=== PATIENT | female | born 1940 | race Caucasian/White ===

== ENCOUNTER → 2018-06-29 | Outpatient (REF) | payer MEDICARE, OTHER ==
[~2018-06-29] MED LIST: ASPIRIN LOW81 M1 PO; CALCIUM600 M2 PO; CIPROFLOXACN500 MG PO; FISH OIL1000 MG PO; GLUCOSAMINE1 TA1 OR; METAMUCIL58.6 % OR; MULTIVITAMI1 PO; ZOFRAN ODT4 MG PO
== END | disposition home or self-care (01) ==
LOC: MAMMO 06-28 10:30
PROVIDERS: ATTEND Preventive Medicine Occupational Medicine
DX: Z12.31 Encounter for screening mammogram for malignant neoplasm of breast (principal)

== ENCOUNTER 2019-09-01 15:35 | Observation (INO) | payer MEDICARE, OTHER ==
[~2019-09-01] VITALS: Ht 157.5 cm; Wt 50.0 kg
--- NOTE | 2019-09-01 15:43 | NUR ---
PT TO ROOM VIA WHEELCHAIR, FOR BEDSIDE TRIAGE
--- NOTE | 2019-09-01 15:45 | NUR ---
PT ASWAER OF CRITICAL PT IN ANOTHER ROOM AND THAT WE WILL BE WITH THEM YAZ
--- NOTE | 2019-09-01 16:18 | NUR ---
IV INITIATED AND LABS COLLECTED. PT MEDICATION ORDERED FOR 10/10 PAIN TO LOW BACK. PT ALSO REPORTS NAUSEA AND ABD PAIN.
[2019-09-01] MEDS ORDERED: ALEVE220 M2 PO (16:22)
[2019-09-01 16:40] LABS: HEMOGLOBIN 13.3 g/dl (12.0-16.0); IMMATURE GRANULOCYTES 0.3 % (0.0-5.0); MEAN CELL VOLUME 90.7 fL CALC (80.0-100.0); MEAN CORPUSCULAR HGB 30.2 pG CALC (26.0-32.0); MEAN CORPUSCULAR HGB CONC 33.3 g/dL CAL (32.0-36.0); NEUT# 5.2 thou/uL (2.00-7.15); RED BLOOD COUNT 4.41 mill/uL (4.20-5.60); RED CELL DISTRI WIDTH 13.4 % (11.5-15.5)
[2019-09-01 16:59] LABS: PROTHROMBIN TIME 10.3 SECONDS (9.0-12.5)
--- NOTE | 2019-09-01 17:00 | NUR ---
PT REPORTS CONTINUED 8/10 PAIN TO ABD AND BACK. MD NOTIFIED.
[2019-09-01 17:12] LABS: ALBUMIN 4.3 g/dL (3.2-5.0); ALKALINE PHOSPHATASE 58 u/l (38-126); AMYLASE 107 u/l (30-110); ANION GAP 10 (6-22 (CALC)); BILIRUBIN, TOTAL 0.8 mg/dL (0.0-1.4); BUN 19 mg/dL (8-23); BUN/CREATININE RATIO 35 (12-20 (CALC)); CARBON DIOXIDE 26 mmol/l (22-30); CHLORIDE 99 mmol/l (95-108); CREATININE 0.5 mg/dL (0.5-1.0); GFR > 60 ML/MIN (>=60 (CALC)); GFR FOR AFR.AMER. > 60 ML/MIN (>=60 (CALC)); LIPASE 85 u/l (23-300); SGOT/AST 30 u/l (9-36); SODIUM 131 mmol/l (137-146); TOTAL PROTEIN 6.9 g/dL (6.3-8.2)
--- NOTE | 2019-09-01 17:51 | NUR ---
PT MEDICATED WITH 2 MG OF MORPHINE FOR 8/10 PAIN TO LOW BACK AND GENERALIZED ABD PAIN.
[2019-09-01 18:17] LABS: URINE BILIRUBIN - DIPSTICK NEGATIVE (NEGATIVE); URINE BLOOD DIPSTICK TRACE-LYSED (NEGATIVE); URINE COLOR YELLOW; URINE GLUCOSE - DIPSTICK NEGATIVE (NEGATIVE); URINE KETONE TRACE mg/dL (NEGATIVE); URINE LEUK ESTERASE TRACE (NEGATIVE); URINE NITRITE - DIPSTICK NEGATIVE (Negative); URINE PROTEIN - DIPSTICK NEGATIVE (NEG-TRACE); URINE UROBILINOGEN - DIPSTICK 0.2 E.U./dL (0.2)
--- NOTE | 2019-09-01 18:26 | NUR ---
MD AT BEDSIDE TO DISCUSS RESULTS AND PLAN FOR ULTRASOUND.
--- NOTE | 2019-09-01 19:19 | NUR ---
REPORT TO BAKARI SORENSEN FOR TRANSPORT.
--- NOTE | 2019-09-01 19:25 | NUR ---
PATIENT PAIN NOW /10.
--- NOTE | 2019-09-01 19:30 | NUR ---
PT REPORT CALLED TO LACHO HAGEN.
[2019-09-01 21:00] VITALS: BP 134/78
--- NOTE | 2019-09-02 | NUR ---
PT RESTING IN BED, CONTINUES TO HAVE EMESIS, EMESIS BAGS GIVEN, DISCUSSED INFUSION OF IV ANTIBIOTICS, PT AGREES, CALL LIGHT IN REACH,CONTINUE TO MONITOR.
[2019-09-02 04:04] VITALS: BP 131/78
--- NOTE | 2019-09-02 05:40 | NUR ---
PT RESTING IN BED, PT STATES SHE FEELS MUCH BETTER, IV ANTIBIOTIC INFUSING, PT PROVIDED ICE CHIPS. CALL LIGHT IN REACH,CONTINUE TO MONITOR.
--- NOTE | 2019-09-02 07:10 | NUR ---
REPORT RECEIVED FROM LACHO HAGEN. PT RESTING IN BED SEMI FOWLERS; ALERT AND ORIENTED. DENIES PAIN. RESPIRATIONS EVEN AND UNLABORED ON ROOM AIR. RLQ ABDOMINAL TENDERNESS WITH PALPATION; ABDOMEN DISTENDED AND SOFT; GOOD BOWEL SOUNDS. PLAN OF CARE REVIEWED. PT ENCOURAGED TO VERBALIZE CONCERNS. STATES UNDERSTANDING. SAFETY MEASURES IN PLACE. CALL LIGHT WITHIN REACH.
[2019-09-02 07:34] VITALS: BP 106/66
--- NOTE | 2019-09-02 08:50 | NUR ---
DR. SMITH AT BEDSIDE.
--- NOTE | 2019-09-02 09:43 | NUR ---
MORPHINE AND ZOFRAN GIVEN WITH AM MEDS FOR 5/10 ABDOMINAL PAIN. SITTING UP IN BED DRINKING ENSURE; CAUSING MILD NAUSEA. IV SITE APPEARS HEALTHY AND FLUSHES.
[2019-09-02] MEDS ORDERED: ALENDRONATE SOD70 MG PO (09:55)
[2019-09-02 11:00] VITALS: BP 111/72
[2019-09-02 15:10] VITALS: BP 101/63
--- NOTE | 2019-09-02 15:59 | NUR ---
AFTER 2/3 DOSES OF ORAL CONTRAST PT C/O NAUSEA. ZOFRAN GIVEN AT THIS TIME.
--- NOTE | 2019-09-02 18:03 | NUR ---
PT TRANSPORTED TO CT VIA WHEELCHAIR IN STABLE CONDITION. BACK IN ROOM. PT TOLERATED WELL. TRANSFERRED WITH STAND BY ASSIST; PT EXPERIENCING JOINT STIFFNESS AND PAIN. REQUESTING WARM PACKS AND PAIN MEDICATION.
--- NOTE | 2019-09-02 18:38 | NUR ---
MORPHINE GIVEN AT THIS TIME; PT C/O 11/10 JOINT AND ABDOMEN PAIN AFTER TRANSPORT. UNASYN INFUSING AT THIS TIME. WARM PACKS PROVIDED.
[2019-09-02 19:21] VITALS: BP 113/68
--- NOTE | 2019-09-02 19:55 | NUR ---
PT RESTING IN BED, ALERT AND ORIETNED. RESPIRATIONS EVEN AND UNLABORED ON RA. LUNGS SOUND CLEAR/DIMINISHED. PEDAL PULSES WEAK. PT REPORTS HAVING PAIN OF 7/10 IN LOWER BACK, PT EDUCATED ON PAIN MED SCHEDULE. SAFETY PRECAUTIONS IN PLACE. WILL CONTINUE TO MONITOR.
[2019-09-02 23:53] VITALS: BP 93/55
--- NOTE | 2019-09-03 01:17 | NUR ---
PT RESTING IN BED. RESPIRATIONS EVEN AND UNLABORED ON RA. NO S/S OF DISTRESS AT THIS TIME. WILL CIONTINUE TO MONITOR.
--- NOTE | 2019-09-03 03:53 | NUR ---
PT RESTING IN BED. TELE IN PLACE. NO S/S OF DISTRESS AT THIS TIME. CALL OJEDA WITHIN REACH WILL CONTINUE TO MONITOR.
[2019-09-03 04:18] VITALS: BP 114/64
[2019-09-03 08:00] VITALS: BP 129/64
--- NOTE | 2019-09-03 08:00 | NUR ---
PT RESTING IN BED. DENIES PAIN OR NAUSEA AT THIS TIME. REQUESTING REGULAR FOOD.
[2019-09-03 11:35] VITALS: BP 131/64
--- NOTE | 2019-09-03 13:00 | NUR ---
PT TOLERATED SOFT DIET. DENIES PAIN OR NAUSEA. PROVIDER UPDATED/ PLAN FOR DISCHARGE TODAY. PATIENT AGREES.
--- NOTE | 2019-09-03 16:09 | NUR ---
PT DISCHARGED, IV CATH REMOVED INTACT, GAUZE AND TAPE AT SITE, PT'S , NILES HUDSON, PROVIDING TRANSPORT HOME.
== END 2019-09-03 16:20 | disposition home or self-care (01) ==
LOC: ED 15:35 → ED-I 18:31 → ED 18:46 → ED-I 18:47 → MS2 18:47
PROVIDERS: ADMIT Internal Medicine; ATTEND Internal Medicine
DX: K80.20 Calculus of gallbladder without cholecystitis without obstruction (principal)
CPT/HCPCS: G0378; Q9967

== ENCOUNTER 2019-09-07 | Observation (INO) | payer MEDICARE, OTHER ==
[2019-09-07] VITALS (9 sets, daily range): BP systolic 121–143; BP diastolic 60–83
[~2019-09-07] MED LIST changes: +ALENDRONATE SOD70 MG PO; +ALEVE220 M2 PO
--- NOTE | 2019-09-07 14:38 | NUR ---
PT ARRIVED TO UNIT VIA STRETCHER WITH OR STAFF; DROWSY AND ORIENTED X 3. ASSISTED SELF FROM STRETCHER OVER TO BED SLOWLY WITH MINIMAL ASSIST. C/O ABDOMINAL PAIN 8/10; 4 ABDOMINAL LAPROSCOPIC INCISIONS WELL APPROXIMATED WITH DERMABOND; ABDOMEN DISTENDED AND SOFT WITH HYPOACTIVE BOWEL SOUNDS. RESPIRATIONS EVEN AND UNLABORED ON OXYGEN 2L VIA NC. LR INFUSING UPON ARRIVAL; MAINTENANCE AT 100ML/HR. SCD'S TO BLE. ORIENTED TO ROOM AND CALL LIGHT SYSTEM. PLAN OF CARE DISCUSSED. PT ENCOURAGED TO VERBALIZE CONCERNS. STATES UNDERSTANDING. SAFETY MEASURES IN PLACE. CALL LIGHT WITHIN REACH.
--- NOTE | 2019-09-07 15:00 | NUR ---
DILAUDID GIVEN FOR SEVERE PAIN. IS PROVIDED. VS STABLE.
--- NOTE | 2019-09-07 16:24 | NUR ---
PT AMBULATED TO BATHROOM WITH STAND BY ASSIST; URGES FOR BM; UNSUCCESSFUL. ZOFRAN GIVEN AT THIS TIME FOR C/O NAUSEA. NOW ON ROOM AIR; SPO2 92-93%. VSS. WILL CONTINUE TO MONITOR.
--- NOTE | 2019-09-07 18:03 | NUR ---
DILAUDID GIVEN FOR 8/10 ABDOMINAL PAIN. PT ATE 50% OF FULL LIQUID DIET AND TOLERATED WELL WITH NO NAUSEA.
--- NOTE | 2019-09-07 18:50 | NUR ---
REPORT FROM LATOYA VILLEGAS. PT NOTED SITTING UP IN BED NO APPARENT DISTRESS NOTED. IV SITE APPEARS HEALTHY. SCDS IN PLACE. X4 INCISIONS CLOSED WITH DERMABOND TO ABD. PT C/O SOME DISCOMFORT WILL MEDICATED ORDERED. DISCUSSED POC. PT VERBALIZED UNDERSTANDING. CALL LIGHT WITHIN REACH. WILL CONTINUE TO MONITOR.
--- NOTE | 2019-09-07 19:38 | NUR ---
PT REQUESTING PAIN MEDICATIONS. REPORTS ABD PAIN 4-10. PT MEDICATED WITH PRN DILAUDID AT THIS TIME. NO APPARENT DISTRESS NOTED. ASSISTED PT TO BATHROOM AT THIS TIME, PT AMBULATED WITH STEADY GAIT AND STAND BY ASSIST. PT DID NOT VOID AT THIS TIME. WILL CONTINUE TO MONITOR. CALL LIGHT WITHIN REACH.
[2019-09-08] VITALS: BP 126/77
--- NOTE | 2019-09-08 00:19 | NUR ---
ASSISTED PT UP TO BATHROOM. PT VOIDED 350 CLEAR YELLOW URINE AT THIS TIME WITHOUT DIFFICULTY. PT ASSISTED BACK TO BED AND MEDICATED FOR PAIN AND NAUSEA. PAIN 4-10. CALL LIGHT WITHIN REACH. WILL CONTINUE TO MONITOR.
--- NOTE | 2019-09-08 04:34 | NUR ---
PT RESTING IN BED WITH EYES CLOSED. NO APPARENT DISTRESS NOTED. CALL LIGHT WITHIN REACH. WILL CONTINUE TO MONITOR.
[2019-09-08 05:00] VITALS: BP 122/67
--- NOTE | 2019-09-08 07:30 | NUR ---
REPORT RECEIVED FROM LACHO LOJA. PT SITTING UP IN BED; ALERT AND ORIENTED. C/O MILD /10 ABDOMINAL PAIN. TOLERATING A REGULAR DIET FOR BREAKFAST, EATING GRITS. RESPIRATIONS EVEN AND UNLABORED ON ROOM AIR. IV FLUIDS INFUSING WITHOUT DIFFICULTY; IV SITE APPEARS HEALTHY. PLAN OF CARE REVIEWED. PT ENCOURAGED TO VERBALIZE CONCERNS. STATES UNDERSTANDING. SAFETY MEASURES IN PLACE. CALL LIGHT WITHIN REACH.
[2019-09-08 08:00] VITALS: BP 140/74
--- NOTE | 2019-09-08 10:20 | NUR ---
DR. SMITH AT BEDSIDE TO DISCUSS DISCHARGE PLANS.
--- NOTE | 2019-09-08 10:51 | NUR ---
IV site discontinued, cath intact. No edema , no redness, voices no discomfort.
--- NOTE | 2019-09-08 10:55 | NUR ---
Discharge instructions given. Patient verbalizes understanding of same. Discharged in stable condition via Wheelchair to Home with spouse. All belongings sent with pt.
== END 2019-09-08 10:55 | disposition home or self-care (01) ==
PROVIDERS: ADMIT Surgery
PROC: 0FT44ZZ Resection of Gallbladder, Percutaneous Endoscopic Approach (ICD-10-PCS; principal; 2019-09-07)
DX: K80.12 Calculus of gallbladder with acute and chronic cholecystitis without obstruction (principal); K82.8 Other specified diseases of gallbladder; Z11.59 Encounter for screening for other viral diseases
CPT/HCPCS: J0131; J1100; J2710; Q9967

== ENCOUNTER 2021-07-16 16:35 | Inpatient (IN) | payer MEDICARE ==
[~2021-07-16] VITALS: Ht 157.5 cm; Wt 50.0 kg
[2021-07-16] VITALS (14 sets, daily range): BP systolic 134–172; BP diastolic 77–90
[2021-07-16 18:51] LABS: HEMATOCRIT 40.2 % (37.0-47.0); HEMOGLOBIN 13.6 g/dl (12.0-16.0); IMMATURE GRANULOCYTES 0.2 % (0.0-5.0); MEAN CELL VOLUME 92.8 fL CALC (80.0-100.0); MEAN CORPUSCULAR HGB 31.4 pG CALC (26.0-32.0); MEAN CORPUSCULAR HGB CONC 33.8 g/dL CAL (32.0-36.0); NEUT# 6.97 thou/uL (2.00-7.15); RED BLOOD COUNT 4.33 mill/uL (4.20-5.60); RED CELL DISTRI WIDTH 12.8 % (11.5-15.5)
[2021-07-16 19:10] LABS: ALBUMIN 4.7 g/dL (3.2-5.0); ALKALINE PHOSPHATASE 64 u/l (38-126); AMYLASE 77 u/l (30-110); ANION GAP 14 (6-22 (CALC)); BILIRUBIN, TOTAL 0.8 mg/dL (0.0-1.4); BUN 24 mg/dL (8-23); BUN/CREATININE RATIO 40 (12-20 (CALC)); CARBON DIOXIDE 34 mmol/l (22-30); CHLORIDE 87 mmol/l (95-108); CREATININE 0.6 mg/dL (0.5-1.0); GFR > 60 ML/MIN (>=60 (CALC)); GFR FOR AFR.AMER. > 60 ML/MIN (>=60 (CALC)); LIPASE 59 u/l (23-300); POTASSIUM 4.4 mmol/l (3.5-5.1); SGOT/AST 45 u/l (9-36); SODIUM 131 mmol/l (137-146); TOTAL PROTEIN 7.1 g/dL (6.3-8.2)
[2021-07-16 19:21] LABS: MYOGLOBIN 86 ng/mL (0 - 62)
[2021-07-17 04:00] VITALS: BP 161/79
[2021-07-17 05:09] LABS: HEMATOCRIT 37.3 % (37.0-47.0); HEMOGLOBIN 12.2 g/dl (12.0-16.0); MEAN CELL VOLUME 93.5 fL CALC (80.0-100.0); MEAN CORPUSCULAR HGB 30.6 pG CALC (26.0-32.0); MEAN CORPUSCULAR HGB CONC 32.7 g/dL CAL (32.0-36.0); RED BLOOD COUNT 3.99 mill/uL (4.20-5.60); RED CELL DISTRI WIDTH 12.8 % (11.5-15.5)
[2021-07-17 05:41] LABS: ANION GAP 10 (6-22 (CALC)); BUN 22 mg/dL (8-23); BUN/CREATININE RATIO 36 (12-20 (CALC)); CARBON DIOXIDE 33 mmol/l (22-30); CHLORIDE 93 mmol/l (95-108); CREATININE 0.6 mg/dL (0.5-1.0); GFR > 60 ML/MIN (>=60 (CALC)); GFR FOR AFR.AMER. > 60 ML/MIN (>=60 (CALC)); MAGNESIUM 1.9 mg/dL (1.6-2.3); POTASSIUM 3.9 mmol/l (3.5-5.1); SODIUM 132 mmol/l (137-146)
[2021-07-17 06:41] VITALS: BP 170/75
[2021-07-17] MEDS ORDERED: CEPHALEXIN500 MG PO (08:59)
[2021-07-17] MEDS ORDERED: SULFASALAZINE PO (09:01)
[2021-07-17] MEDS ORDERED: TYLENOL 8 HOUR650 MG PO (09:02)
[2021-07-17 10:00] LABS: URINE BILIRUBIN - DIPSTICK NEGATIVE (NEGATIVE); URINE BLOOD DIPSTICK SMALL (NEGATIVE); URINE COLOR YELLOW; URINE GLUCOSE - DIPSTICK NEGATIVE (NEGATIVE); URINE KETONE 15 mg/dL (NEGATIVE); URINE LEUK ESTERASE NEGATIVE (NEGATIVE); URINE PROTEIN - DIPSTICK NEGATIVE (NEG-TRACE); URINE SPECIFIC GRAVITY 1.015; URINE UROBILINOGEN - DIPSTICK 0.2 E.U./dL (0.2)
[2021-07-17 10:08] LABS: URINE NITRITE - DIPSTICK NEGATIVE (Negative)
[2021-07-17 10:18] VITALS: BP 168/79
[2021-07-17 10:20] LABS: URINE WBC 0-2 WBC/hpf (0-5)
[2021-07-17 14:43] VITALS: BP 168/79
[2021-07-17 18:24] VITALS: BP 158/87
[2021-07-17 19:35] VITALS: BP 158/87
[2021-07-18 03:11] VITALS: BP 160/78
[2021-07-18 04:00] VITALS: BP 160/78
[2021-07-18 05:38] LABS: HEMATOCRIT 40.4 % (37.0-47.0); HEMOGLOBIN 13.1 g/dl (12.0-16.0); MEAN CELL VOLUME 96.7 fL CALC (80.0-100.0); MEAN CORPUSCULAR HGB 31.3 pG CALC (26.0-32.0); MEAN CORPUSCULAR HGB CONC 32.4 g/dL CAL (32.0-36.0); RED BLOOD COUNT 4.18 mill/uL (4.20-5.60); RED CELL DISTRI WIDTH 12.9 % (11.5-15.5)
[2021-07-18 06:06] LABS: ANION GAP 20 (6-22 (CALC)); BUN 25 mg/dL (8-23); BUN/CREATININE RATIO 42 (12-20 (CALC)); CARBON DIOXIDE 23 mmol/l (22-30); CHLORIDE 102 mmol/l (95-108); CREATININE 0.6 mg/dL (0.5-1.0); GFR > 60 ML/MIN (>=60 (CALC)); GFR FOR AFR.AMER. > 60 ML/MIN (>=60 (CALC)); POTASSIUM 3.7 mmol/l (3.5-5.1); SODIUM 141 mmol/l (137-146)
[2021-07-18 08:00] VITALS: BP 166/82
[2021-07-18 13:40] VITALS: BP 166/82
[2021-07-18 15:08] VITALS: BP 162/82
[2021-07-18 19:00] VITALS: BP 156/76
[2021-07-19] VITALS (10 sets, daily range): BP systolic 154–178; BP diastolic 74–84
[2021-07-19 06:11] LABS: HEMATOCRIT 35.5 % (37.0-47.0); HEMOGLOBIN 11.7 g/dl (12.0-16.0); MEAN CELL VOLUME 96.7 fL CALC (80.0-100.0); MEAN CORPUSCULAR HGB 31.9 pG CALC (26.0-32.0); RED BLOOD COUNT 3.67 mill/uL (4.20-5.60); RED CELL DISTRI WIDTH 12.9 % (11.5-15.5)
[2021-07-19 06:51] LABS: ANION GAP 13 (6-22 (CALC)); BUN 22 mg/dL (8-23); BUN/CREATININE RATIO 42 (12-20 (CALC)); CHLORIDE 104 mmol/l (95-108); CREATININE 0.5 mg/dL (0.5-1.0); GFR > 60 ML/MIN (>=60 (CALC)); GFR FOR AFR.AMER. > 60 ML/MIN (>=60 (CALC)); SODIUM 142 mmol/l (137-146)
[2021-07-19 07:06] LABS: CARBON DIOXIDE 28 mmol/l (22-30)
[2021-07-20] VITALS (10 sets, daily range): BP systolic 119–193; BP diastolic 76–91
[2021-07-20 05:30] LABS: HEMATOCRIT 36.6 % (37.0-47.0); MEAN CELL VOLUME 96.6 fL CALC (80.0-100.0); MEAN CORPUSCULAR HGB 31.7 pG CALC (26.0-32.0); MEAN CORPUSCULAR HGB CONC 32.8 g/dL CAL (32.0-36.0); RED BLOOD COUNT 3.79 mill/uL (4.20-5.60); RED CELL DISTRI WIDTH 12.9 % (11.5-15.5)
[2021-07-20 05:56] LABS: ANION GAP 15 (6-22 (CALC)); BUN 17 mg/dL (8-23); BUN/CREATININE RATIO 36 (12-20 (CALC)); CARBON DIOXIDE 24 mmol/l (22-30); CHLORIDE 105 mmol/l (95-108); CREATININE 0.5 mg/dL (0.5-1.0); GFR > 60 ML/MIN (>=60 (CALC)); GFR FOR AFR.AMER. > 60 ML/MIN (>=60 (CALC)); MAGNESIUM 2.1 mg/dL (1.6-2.3); SODIUM 141 mmol/l (137-146)
[2021-07-21 03:02] VITALS: BP 174/86
[2021-07-21 04:00] VITALS: BP 178/86
[2021-07-21 05:17] LABS: HEMATOCRIT 40.5 % (37.0-47.0); HEMOGLOBIN 13.4 g/dl (12.0-16.0); MEAN CELL VOLUME 94.8 fL CALC (80.0-100.0); MEAN CORPUSCULAR HGB 31.4 pG CALC (26.0-32.0); MEAN CORPUSCULAR HGB CONC 33.1 g/dL CAL (32.0-36.0); RED BLOOD COUNT 4.27 mill/uL (4.20-5.60); RED CELL DISTRI WIDTH 12.5 % (11.5-15.5)
[2021-07-21 05:35] LABS: ANION GAP 11 (6-22 (CALC)); BUN 17 mg/dL (8-23); BUN/CREATININE RATIO 41 (12-20 (CALC)); CHLORIDE 95 mmol/l (95-108); CREATININE 0.4 mg/dL (0.5-1.0); GFR > 60 ML/MIN (>=60 (CALC)); GFR FOR AFR.AMER. > 60 ML/MIN (>=60 (CALC)); POTASSIUM 2.9 mmol/l (3.5-5.1); SODIUM 135 mmol/l (137-146)
[2021-07-21 05:41] LABS: CARBON DIOXIDE 32 mmol/l (22-30)
[2021-07-21 06:49] VITALS: BP 158/83
[2021-07-21 12:11] VITALS: BP 159/87
[2021-07-21 16:28] VITALS: BP 150/84
[2021-07-21 18:58] VITALS: BP 147/82
[2021-07-22] VITALS: BP 146/80
[2021-07-22 04:56] VITALS: BP 143/84
[2021-07-22 05:21] LABS: HEMATOCRIT 35.4 % (37.0-47.0); HEMOGLOBIN 11.5 g/dl (12.0-16.0); MEAN CELL VOLUME 95.7 fL CALC (80.0-100.0); MEAN CORPUSCULAR HGB 31.1 pG CALC (26.0-32.0); MEAN CORPUSCULAR HGB CONC 32.5 g/dL CAL (32.0-36.0); RED BLOOD COUNT 3.7 mill/uL (4.20-5.60); RED CELL DISTRI WIDTH 12.3 % (11.5-15.5)
[2021-07-22 05:42] LABS: BUN 14 mg/dL (8-23); BUN/CREATININE RATIO 41 (12-20 (CALC)); CARBON DIOXIDE 28 mmol/l (22-30); CHLORIDE 99 mmol/l (95-108); CREATININE 0.3 mg/dL (0.5-1.0); GFR > 60 ML/MIN (>=60 (CALC)); GFR FOR AFR.AMER. > 60 ML/MIN (>=60 (CALC)); MAGNESIUM 1.8 mg/dL (1.6-2.3); SODIUM 130 mmol/l (137-146)
[2021-07-22 05:46] LABS: ANION GAP 7 (6-22 (CALC)); POTASSIUM 4.2 mmol/l (3.5-5.1)
[2021-07-22 07:41] VITALS: BP 147/93
[2021-07-22 09:38] VITALS: BP 135/92
[2021-07-22 15:14] VITALS: BP 130/76
[2021-07-22 19:00] VITALS: BP 123/75
[2021-07-23] VITALS: BP 148/67
[2021-07-23 04:00] VITALS: BP 132/75
[2021-07-23 05:32] LABS: ANION GAP 8 (6-22 (CALC)); BUN 12 mg/dL (8-23); BUN/CREATININE RATIO 23 (12-20 (CALC)); CARBON DIOXIDE 28 mmol/l (22-30); CHLORIDE 99 mmol/l (95-108); CREATININE 0.5 mg/dL (0.5-1.0); GFR > 60 ML/MIN (>=60 (CALC)); GFR FOR AFR.AMER. > 60 ML/MIN (>=60 (CALC)); POTASSIUM 4.2 mmol/l (3.5-5.1); SODIUM 130 mmol/l (137-146)
[2021-07-23 06:49] VITALS: BP 153/89
[2021-07-23 09:12] VITALS: BP 147/80
== END 2021-07-23 13:44 | disposition home or self-care (01) | DRG 337 ==
LOC: ED 16:35 → ED-I 20:31 → MS2 20:44 → ED 20:44 → MS2 20:44
PROVIDERS: Emergency Medicine; Internal Medicine; ADMIT Hospitalist; ATTEND Hospitalist
PROC: 0DN80ZZ Release Small Intestine, Open Approach (ICD-10-PCS; principal; 2021-07-19)
PROC: 0DJD4ZZ Inspection of Lower Intestinal Tract, Percutaneous Endoscopic Approach (ICD-10-PCS; 2021-07-19)
DX: K56.50 Intestinal adhesions [bands], unspecified as to partial versus complete obstruction (principal); I10 Essential (primary) hypertension; J10.1 Influenza due to other identified influenza virus with other respiratory manifestations; I48.0 Paroxysmal atrial fibrillation; Z20.822 Contact with and (suspected) exposure to COVID-19
CPT/HCPCS: G0378; J0131; J1100; J1650; Q9967

== ENCOUNTER 2021-08-15 10:08 | Emergency (ER) | payer MEDICARE ==
[~2021-08-15] VITALS: Ht 157.5 cm; Wt 46.8 kg
[~2021-08-15 10:08] MED LIST changes: +CEPHALEXIN500 MG PO; +SULFASALAZINE PO; +TYLENOL 8 HOUR650 MG PO
[2021-08-15 10:20] VITALS: BP 158/84
[2021-08-15 10:30] VITALS: BP 154/77
[2021-08-15] MEDS ORDERED: BACTRIM DS1 TAB PO (10:37)
[2021-08-15] MEDS ORDERED: CEPHALEXIN500 MG PO (10:37)
[2021-08-15 11:00] VITALS: BP 122/70
[2021-08-15 11:08] VITALS: BP 122/70
== END 2021-08-15 11:09 | disposition home or self-care (01) ==
LOC: ED 10:08
DX: T81.41XA Infection following a procedure, superficial incisional surgical site, initial encounter (principal); L03.311 Cellulitis of abdominal wall; Y83.8 Other surgical procedures as the cause of abnormal reaction of the patient, or of later complication, without mention of misadventure at the time of the procedure